=== PATIENT | female | born 1975 | race Caucasian/White ===

== ENCOUNTER → 2018-01-20 | Outpatient (CLI) | payer OTHER ==
--- NOTE | 2018-01-20 09:15 | Diagnostic Imaging Report ---
Exam: Brain MRI without IV contrast History: Aphasia, memory loss Comparison studies: None Technique: 3-D T1 with axial, coronal and sagittal reformats, axial DWI, axial T2*GRE, axial T2 FS and axial T2 FLAIR. Intravenous contrast: None Technique: Precontrast: Hi resolution Sag T1 with coronal and axial reformats. Axial DWI, T2, T2 flair, gradient echo or SWI Intravenous contrast: None. Findings: Structural lesions: No intra-or extra-axial masses. No hematomas. No acute ischemia or abnormal restricted diffusion. Atrophy: General: Symmetric and age appropriate. Focal: No disproportionate lobar, hippocampal, mesencephalic, pontine, or cerebellar atrophy. Nicolas matter: Cortex: No signal abnormalities. No encephalomalacia. Basal ganglia: No atrophy or signal abnormalities. Thalami: No signal abnormalities. White matter signal intensity: Signal punctate T2 FLAIR hyperintense focus in the right frontal insular white matter is nonspecific but may reflect minimal chronic microvascular ischemic changes or small focal nonspecific gliosis and is likely of no clinical significance. Micro hemorrhages: None. Subarachnoid spaces: No signal abnormalities. Ventricles: Normal in size and configuration. No hydrocephalus. Other: Skull: No bone marrow abnormalities. Vessels: Expected flow voids present in the major arteries and dural sinuses.. Sella: Normal in size. No intra-or suprasellar abnormalities. Cranio-cervical junction: No abnormalities. Patent foramen magnum. No Chiari one malformation. Paranasal sinuses and mastoids: Minimal nonspecific reactive T2 hyperintense changes in the right mastoids. IMPRESSION: 1. No significant intracranial abnormalities. 2. Single punctate right frontal-insular signal abnormality, possibly minimal chronic microvascular ischemic changes, likely of no clinical significance. Signed by: Dr. Micha Amaya M.D. on 01/20/2018 9:11 AM
== END ==
LOC: MRI 07:30
PROVIDERS: ATTEND Family Medicine
DX: R47.01 Aphasia (principal)
CPT/HCPCS: 70551; 93880

== ENCOUNTER → 2021-05-12 | Outpatient (CLI) | payer OTHER | LOC: MRI 14:56 | PROVIDERS: ATTEND Family Medicine | DX: S93.402D Sprain of unspecified ligament of left ankle, subsequent encounter (principal) ==